=== PATIENT | female | born 1990 | race African-American/Black ===

== ENCOUNTER 2018-05-16 22:18 | Emergency (ER) | payer OTHER ==
[~2018-05-16] VITALS: Ht 170.2 cm; Wt 77.1 kg
[~2018-05-16 22:18] MED LIST: AMOXICILLIN 50500 M1 PO; CIPRO500 MG PO; CLONAZEPAM 0.50.5 M1 PO; ERYTHROMYCIN500 MG PO; HYDROCODONE-AP1 EAC6 PO; LATUDA20 MG; LEXAPRO5 MG; LITHOBID300 MG; MACROBID 100 M100 M2 PO; MOBIC15 MG PO; MOBIC7.5 MG PO; NORCO 5-325 TA1 EACH PO; OMEPRAZOLE40 MG PO; ONDANSETRON HCL4 M2 PO; PERCOCET PO; PROAIR HFA8.5 GM INH; SEROQUEL 25 MG25 MG PO; SYNTHROID25 MC1 PO; SYNTHROID88 MCG PO; ZANTAC 150MG T150 MG PO; ZOFRAN ODT4 MG PO; ZPAK PO
[2018-05-16 22:46] LABS: URINE BILIRUBIN NEGATIVE (Negative); URINE BLOOD 2+ (Negative); URINE CLARITY SL CLOUDY; URINE COLOR YELLOW; URINE GLUCOSE-RANDOM* NEGATIVE (Negative); URINE KETONES NEGATIVE (Negative); URINE LEUKOCYTES-REFLEX 2+ (Negative); URINE NITRITE-REFLEX NEGATIVE (Negative); URINE PROTEIN (DIPSTICK) NEGATIVE (Negative); URINE UROBILINOGEN 0.2 E.U./dl (0.2-1.0)
[2018-05-16 22:57] LABS: CASTS None Seen /LPF (None Seen); CRYSTALS None Seen /LPF (None Seen); MUCUS 0-3 Light strn/LPF (None Seen); SQUAMOUS >10 Many /LPF (0-3); URINE RBC 0-2 Rare /HPF (0-2); URINE WBC-REFLEX 0-5 Rare /HPF (0-5)
[2018-05-17 00:11] LABS: ABSOLUTE NEUTROPHILS 5.2 thou/uL (1.4-8.2); EOSINOPHILS 3.8 % (0.0-3.0); HEMATOCRIT 39.3 % (37.0-47.0); HEMOGLOBIN 13.2 gm/dL (12.0-15.0); MCH 29.3 pg (26.0-34.0); MCHC 33.5 g/dL (28.0-37.0); MCV 87.3 fL (80.0-100.0); MONOCYTES 4.2 % (1.0-8.0); PLATELET COUNT 365 thou/uL (150-400); RDW 13.5 % (10.5-14.5); WBC 9.4 thou/uL (4.0-11.0)
[2018-05-17 00:17] LABS: CALCIUM 9.2 mg/dL (8.5-10.1); POTASSIUM 3.8 mmol/L (3.5-5.1)
[2018-05-17 00:23] LABS: ALBUMIN 3.4 g/dL (3.4-5.0); TOTAL BILIRUBIN 0.1 mg/dL (<0.1-1.0); TOTAL PROTEIN 7.5 g/dL (6.4-8.2)
[2018-05-17] MEDS ORDERED: ALBENDAZOLE200 MG PO (00:41)
[2018-05-17 01:08] VITALS: BP 125/71
== END 2018-05-17 01:08 | disposition home or self-care (01) ==
LOC: ER 22:18
PROVIDERS: Emergency Medicine
DX: R10.32 Left lower quadrant pain (principal); F17.210 Nicotine dependence, cigarettes, uncomplicated; F31.9 Bipolar disorder, unspecified; K21.9 Gastro-esophageal reflux disease without esophagitis; F41.0 Panic disorder [episodic paroxysmal anxiety]; E06.3 Autoimmune thyroiditis; Z88.1 Allergy status to other antibiotic agents; Z88.0 Allergy status to penicillin; Z88.6 Allergy status to analgesic agent